=== PATIENT | male | born 1990 | race Caucasian/White ===

== ENCOUNTER 2018-07-06 05:44 | Observation (INO) | payer OTHER ==
[~2018-07-06] VITALS: Ht 180.3 cm; Wt 85.3 kg
[~2018-07-06 05:44] MED LIST: ALBU8.5H11 INH; AMO250L PO; AUG875 PO; DIA5 PO; DOCU240C84 PO; ERYT-83 PO; HYDEL PO; IBU800 PO; LOR5 PO; LOR5/325 PO; NO ROUTINE MEDS; ONDA4TAB PO; PRE20 PO; [UNRECOGNIZED DRUG - OTHER] PO
--- NOTE | 2018-07-06 05:59 | ER Report ---
History and Physical Time Seen By MD: 05:59 Hx. of Stated Complaint: extremepain after spinal fusion on tues, L4 & L5 ems gave 100mcg fentenyl, 4mg zofran pain is more controlled (ANGELITO WEEMS MD) HPI/ROS CHIEF COMPLAINT: back pain in area of surgery. HISTORY OF PRESENT ILLNESS: This is a 28 year old male. He is having increased back pain after surgery. He had a [id number] invasive transforaminal interbody fusion for L5 radiculopathy on the right and L5-S1 isthmic spondylolisthesis done on July 04, 2 days ago, by Dr. Trammell. He is taking Lortab and Valium for pain. He had been doing well, getting up and down and moving around yesterday, then yesterday afternoon feeling overall general weakness and worsening pain. He has been urinating normally, no difficulty. He has normal sensation in the legs. He has no fevers or chills. Has not had a bowel movement yet since having the surgery. He has started a stool softener once a day, first dose yesterday. Not noting any leakage from the surgical site, dressing still in place, but is dry. (ANGELITO WEEMS MD) Allergies: Coded Allergies: nickel (Verified Allergy, Mild, 07/06/18) Home Meds Reported Medications Ranitidine Hcl (ZANTAC) 150 Mg Tablet, 150 MG PO QDAY, TAB 07/06/18 Docusate Calcium (SURFAK) 240 Mg Capsule, 240 MG PO QDAY, #9 CAPSULE 07/04/18 Diazepam (VALIUM) 5 Mg Tablet, 5 MG PO Q8H PRN for PAIN, #16 TAB 07/04/18 Hydrocodone Bit/Acetaminophen (HYDROCODON-ACETAMINOPHEN 5-325) 1 Each Tablet, 1- 2 EACH PO Q6H, #36 TAB 07/04/18 Reviewed Nurses Notes: Yes (ANGELITO WEEMS MD) Hx Smoking: Yes Smoking Status: Former Smoker, Light Tobacco Smoker Exposure to Second Hand Smoke?: Yes Hx Substance Use Disorder: Yes (couple "bowls" a day) Hx Alcohol Use: Yes (ANGELITO WEEMS MD) Constitutional Vital Sign - Last 24 Hours 07/06/18 05:45 Temp 97.7 Pulse 93 Resp 16 B/P (MAP) 133/78 Pulse Ox 92 O2 Delivery Nasal Cannula Physical Exam General Appearance: Alert, having some distress due to pain. Eyes: Pupils equal and round no injection ENT: Normal oral mucosa. Moist mucous membranes. Neck: Neck is supple and non tender. Respiratory: Chest is non tender, lungs are clear to auscultation. Cardiac: regular rate and rhythm, normal pulses in the feet and wrists. good capillary refill. Gastrointestinal: Abdomen is soft and non tender, no masses, bowel sounds normal. Musculoskeletal: No pain in extremities. Pain worsens with movement. Neuro: normal strength in the extremities. No numbness. Skin: No rashes or lesions. DIFFERENTIAL DIAGNOSIS: After history and physical exam differential diagnosis was considered for back pain after surgery, was doing well, but now worsening pain. No injuries. Will need to look at possible increased pain control versus other problem with the recent fusion or infectious process. Will give pain medication and then evaluate the surgical site by removing the dressing and then considering imaging. (ANGELITO WEEMS MD) Constitutional Vital Sign - Last 24 Hours 07/06/18 07/06/18 07/06/18 07/06/18 05:45 05:52 06:14 06:44 Temp 97.7 Pulse 93 96 98 Resp 16 B/P (MAP) 133/78 133/78 (96) Pulse Ox 92 93 93 O2 Delivery Nasal Cannula 07/06/18 07/06/18 07/06/18 07/06/18 06:54 07:00 07:05 07:30 Pulse 105 B/P (MAP) 130/78 (95) 126/65 (85) 134/70 (91) Pulse Ox 95 07/06/18 07/06/18 07:35 08:00 Pulse 106 B/P (MAP) 120/63 (82) Pulse Ox 95 Physical Exam 07/06/2018 7:22:39 am after patient was given adequate pain occasion, he was assisted to rolling to the side. The back was examined. Incision is clean dry and intact no evidence of wound dehiscence no wound erythema and no fluctuance felt underneath the surgical site. (RAFY MARTINS MD) Medical Decision Making Data Points Result Diagram: 07/06/1827 07/06/18626 Laboratory Hematology Test 07/06/18 06:27 07/06/18 06:55 Red Blood Count 5.01 M/uL (4.00-5.60) Mean Corpuscular Volume 90.1 fL (80.0-96.0) Mean Corpuscular Hemoglobin 30.7 pg (26.0-33.0) Mean Corpuscular Hemoglobin Concent 34.0 g/dL (32.0-36.0) Red Cell Distribution Width 13.1 % (11.5-14.5) Mean Platelet Volume 8.0 fL (7.2-11.1) Neutrophils (%) (Auto) 77.4 % (39.4-72.5) Lymphocytes (%) (Auto) 12.8 % (17.6-49.6) Monocytes (%) (Auto) 8.7 % (4.1-12.4) Eosinophils (%) (Auto) 0.2 % (0.4-6.7) Basophils (%) (Auto) 0.9 % (0.3-1.4) Nucleated RBC Relative Count (auto) 0.1 /100WBC Neutrophils # (Auto) 11.3 K/uL (2.0-7.4) Lymphocytes # (Auto) 1.9 K/uL (1.3-3.6) Monocytes # (Auto) 1.3 K/uL (0.3-1.0) Eosinophils # (Auto) 0.0 K/uL (0.0-0.5) Basophils # (Auto) 0.1 K/uL (0.0-0.1) Nucleated RBC Absolute Count (auto) 0.01 K/uL Erythrocyte Sedimentation Rate 16 mm/HOUR (0-15) Sodium Level 138 mmol/L (137-145) Potassium Level 3.9 mmol/L (3.5-5.0) Chloride Level 103 mmol/L (98-107) Carbon Dioxide Level 26 mmol/L (22-30) Blood Urea Nitrogen 17 mg/dl (9-21) Creatinine 0.90 mg/dl (0.66-1.25) Glomerular Filtration Rate Calc > 60.0 Random Glucose 110 mg/dl (75-110) Calcium Level 8.6 mg/dl (8.4-10.2) Total Bilirubin 0.5 mg/dl (0.2-1.3) Aspartate Amino Transf (AST/SGOT) 53 U/L (0-35) Alanine Aminotransferase (ALT/SGPT) 54 U/L (0-56) Alkaline Phosphatase 60 U/L (0-126) C-Reactive Protein 4.4 mg/dl (<1.0) Total Protein 6.9 g/dl (6.3-8.2) Albumin 3.8 g/dl (3.5-5.0) Chemistry Test 07/06/18 06:27 07/06/18 06:55 White Blood Count 14.6 k/uL (4.5-11.0) Red Blood Count 5.01 M/uL (4.00-5.60) Hemoglobin 15.4 g/dL (14.0-18.0) Hematocrit 45.1 % (42.0-52.0) Mean Corpuscular Volume 90.1 fL (80.0-96.0) Mean Corpuscular Hemoglobin 30.7 pg (26.0-33.0) Mean Corpuscular Hemoglobin Concent 34.0 g/dL (32.0-36.0) Red Cell Distribution Width 13.1 % (11.5-14.5) Platelet Count 208 K/uL (150-450) Mean Platelet Volume 8.0 fL (7.2-11.1) Neutrophils (%) (Auto) 77.4 % (39.4-72.5) Lymphocytes (%) (Auto) 12.8 % (17.6-49.6) Monocytes (%) (Auto) 8.7 % (4.1-12.4) Eosinophils (%) (Auto) 0.2 % (0.4-6.7) Basophils (%) (Auto) 0.9 % (0.3-1.4) Nucleated RBC Relative Count (auto) 0.1 /100WBC Neutrophils # (Auto) 11.3 K/uL (2.0-7.4) Lymphocytes # (Auto) 1.9 K/uL (1.3-3.6) Monocytes # (Auto) 1.3 K/uL (0.3-1.0) Eosinophils # (Auto) 0.0 K/uL (0.0-0.5) Basophils # (Auto) 0.1 K/uL (0.0-0.1) Nucleated RBC Absolute Count (auto) 0.01 K/uL Erythrocyte Sedimentation Rate 16 mm/HOUR (0-15) Glomerular Filtration Rate Calc > 60.0 Calcium Level 8.6 mg/dl (8.4-10.2) Total Bilirubin 0.5 mg/dl (0.2-1.3) Aspartate Amino Transf (AST/SGOT) 53 U/L (0-35) Alanine Aminotransferase (ALT/SGPT) 54 U/L (0-56) Alkaline Phosphatase 60 U/L (0-126) C-Reactive Protein 4.4 mg/dl (<1.0) Total Protein 6.9 g/dl (6.3-8.2) Albumin 3.8 g/dl (3.5-5.0) Urinalysis Test 07/06/18 06:55 ([facility]) Laboratory Hematology Test 07/06/18 06:27 07/06/18 06:55 Red Blood Count 5.01 M/uL (4.00-5.60) Mean Corpuscular Volume 90.1 fL (80.0-96.0) Mean Corpuscular Hemoglobin 30.7 pg (26.0-33.0) Mean Corpuscular Hemoglobin Concent 34.0 g/dL (32.0-36.0) Red Cell Distribution Width 13.1 % (11.5-14.5) Mean Platelet Volume 8.0 fL (7.2-11.1) Neutrophils (%) (Auto) 77.4 % (39.4-72.5) Lymphocytes (%) (Auto) 12.8 % (17.6-49.6) Monocytes (%) (Auto) 8.7 % (4.1-12.4) Eosinophils (%) (Auto) 0.2 % (0.4-6.7) Basophils (%) (Auto) 0.9 % (0.3-1.4) Nucleated RBC Relative Count (auto) 0.1 /100WBC Neutrophils # (Auto) 11.3 K/uL (2.0-7.4) Lymphocytes # (Auto) 1.9 K/uL (1.3-3.6) Monocytes # (Auto) 1.3 K/uL (0.3-1.0) Eosinophils # (Auto) 0.0 K/uL (0.0-0.5) Basophils # (Auto) 0.1 K/uL (0.0-0.1) Nucleated RBC Absolute Count (auto) 0.01 K/uL Erythrocyte Sedimentation Rate 16 mm/HOUR (0-15) Sodium Level 138 mmol/L (137-145) Potassium Level 3.9 mmol/L (3.5-5.0) Chloride Level 103 mmol/L (98-107) Carbon Dioxide Level 26 mmol/L (22-30) Blood Urea Nitrogen 17 mg/dl (9-21) Creatinine 0.90 mg/dl (0.66-1.25) Glomerular Filtration Rate Calc > 60.0 Random Glucose 110 mg/dl (75-110) Calcium Level 8.6 mg/dl (8.4-10.2) Total Bilirubin 0.5 mg/dl (0.2-1.3) Aspartate Amino Transf (AST/SGOT) 53 U/L (0-35) Alanine Aminotransferase (ALT/SGPT) 54 U/L (0-56) Alkaline Phosphatase 60 U/L (0-126) C-Reactive Protein 4.4 mg/dl (<1.0) Total Protein 6.9 g/dl (6.3-8.2) Albumin 3.8 g/dl (3.5-5.0) Urine Color Yellow Urine Clarity Clear Urine pH 5.0 pH (4.8-9.5) Urine Specific [place] 1.024 Urine Protein Negative mg/dL (NEGATIVE) Urine Glucose (UA) Negative mg/dL (NEGATIVE) Urine Ketones Negative mg/dL (NEGATIVE) Urine Blood Negative (NEGATIVE) Urine Nitrite Negative (NEGATIVE) Urine Bilirubin Negative (NEGATIVE) Urine Urobilinogen Negative mg/dL (0.2-1.9) Urine Leukocyte Esterase Negative (NEGATIVE) Urine RBC None /HPF (0-2/HPF) Urine WBC <1 /HPF (0-5/HPF) Urine Squamous Epithelial Cells None /LPF (</=FEW) Urine Bacteria Negative /HPF (NONE-FEW) Urine Mucus Few /HPF (NONE-FEW) Chemistry Test 07/06/18 06:27 07/06/18 06:55 White Blood Count 14.6 k/uL (4.5-11.0) Red Blood Count 5.01 M/uL (4.00-5.60) Hemoglobin 15.4 g/dL (14.0-18.0) Hematocrit 45.1 % (42.0-52.0) Mean Corpuscular Volume 90.1 fL (80.0-96.0) Mean Corpuscular Hemoglobin 30.7 pg (26.0-33.0) Mean Corpuscular Hemoglobin Concent 34.0 g/dL (32.0-36.0) Red Cell Distribution Width 13.1 % (11.5-14.5) Platelet Count 208 K/uL (150-450) Mean Platelet Volume 8.0 fL (7.2-11.1) Neutrophils (%) (Auto) 77.4 % (39.4-72.5) Lymphocytes (%) (Auto) 12.8 % (17.6-49.6) Monocytes (%) (Auto) 8.7 % (4.1-12.4) Eosinophils (%) (Auto) 0.2 % (0.4-6.7) Basophils (%) (Auto) 0.9 % (0.3-1.4) Nucleated RBC Relative Count (auto) 0.1 /100WBC Neutrophils # (Auto) 11.3 K/uL (2.0-7.4) Lymphocytes # (Auto) 1.9 K/uL (1.3-3.6) Monocytes # (Auto) 1.3 K/uL (0.3-1.0) Eosinophils # (Auto) 0.0 K/uL (0.0-0.5) Basophils # (Auto) 0.1 K/uL (0.0-0.1) Nucleated RBC Absolute Count (auto) 0.01 K/uL Erythrocyte Sedimentation Rate 16 mm/HOUR (0-15) Glomerular Filtration Rate Calc > 60.0 Calcium Level 8.6 mg/dl (8.4-10.2) Total Bilirubin 0.5 mg/dl (0.2-1.3) Aspartate Amino Transf (AST/SGOT) 53 U/L (0-35) Alanine Aminotransferase (ALT/SGPT) 54 U/L (0-56) Alkaline Phosphatase 60 U/L (0-126) C-Reactive Protein 4.4 mg/dl (<1.0) Total Protein 6.9 g/dl (6.3-8.2) Albumin 3.8 g/dl (3.5-5.0) Urine Color Yellow Urine Clarity Clear Urine pH 5.0 pH (4.8-9.5) Urine Specific [place] 1.024 Urine Protein Negative mg/dL (NEGATIVE) Urine Glucose (UA) Negative mg/dL (NEGATIVE) Urine Ketones Negative mg/dL (NEGATIVE) Urine Blood Negative (NEGATIVE) Urine Nitrite Negative (NEGATIVE) Urine Bilirubin Negative (NEGATIVE) Urine Urobilinogen Negative mg/dL (0.2-1.9) Urine Leukocyte Esterase Negative (NEGATIVE) Urine RBC None /HPF (0-2/HPF) Urine WBC <1 /HPF (0-5/HPF) Urine Squamous Epithelial Cells None /LPF (</=FEW) Urine Bacteria Negative /HPF (NONE-FEW) Urine Mucus Few /HPF (NONE-FEW) Urinalysis Test 07/06/18 06:55 Urine Color Yellow Urine Clarity Clear Urine pH 5.0 pH (4.8-9.5) Urine Specific [place] 1.024 Urine Protein Negative mg/dL (NEGATIVE) Urine Glucose (UA) Negative mg/dL (NEGATIVE) Urine Ketones Negative mg/dL (NEGATIVE) Urine Blood Negative (NEGATIVE) Urine Nitrite Negative (NEGATIVE) Urine Bilirubin Negative (NEGATIVE) Urine Urobilinogen Negative mg/dL (0.2-1.9) Urine Leukocyte Esterase Negative (NEGATIVE) Urine RBC None /HPF (0-2/HPF) Urine WBC <1 /HPF (0-5/HPF) Urine Squamous Epithelial Cells None /LPF (</=FEW) Urine Bacteria Negative /HPF (NONE-FEW) Urine Mucus Few /HPF (NONE-FEW) (RAFY MARTINS MD) ED Course/Re-evaluation Turned Over The care of the patient was turned over to Dr. Martins. Angelito Weems M.D. I authorize my typed signature that I authenticated this report. (ANGELITO WEEMS MD) ED Course 07/06/2018 7:23:[address] Kingston Trammell who is the patient's operating surgeon. History physical exam blood work including white cell count, sedimen tation rate and CRP were discussed. Dr. Trammell does not feel that any additional imaging would be useful at this time. Recommends continued hydration, continue with his current outpatient prescriptions and to avoid all NSAIDs for the next few months. Patient understands. Will follow-up with Dr. Trammell. Was counseled to return at any time if he develops fever. Re-evaluation 07/06/2018 8:52:28 am patient despite multiple doses of pain medication was unable to ambulate I discussed case with who stated that we will admit the pain for pain control. Place the patient on a pain [employer]AT [employer] pump with Zofran for nausea. Patient and had no questions or concerns at time of disposition Decision to Disposition Date: Jul 06, 2018 Decision to Disposition Time: 08:31 (RAFY MARTINS MD) Depart Departure Latest Vital Signs Vital Signs Date Time Temp Pulse Resp B/P (MAP) Pulse Ox O2 Delivery O2 Flow Rate FiO2 07/06/18 05:45 97.7 93 16 133/78 92 Nasal Cannula (ANGELITO WEEMS MD) Latest Vital Signs Vital Signs Date Time Temp Pulse Resp B/P (MAP) Pulse Ox O2 Delivery O2 Flow Rate FiO2 07/06/18 08:00 120/63 (82) 07/06/18 07:35 106 95 07/06/18 05:45 97.7 16 Nasal Cannula (RAFY MARTINS MD) Impression: Primary Impression: Post-operative pain Condition: Condition Unchanged Disposition: Admitted from ER (to Dr Wilson) Patient Instructions: Back Pain (ED) Additional Instructions: Continue all your outpatient medications as prescribed. Follow-up with Dr. Trammell by phone next week. If your symptoms worsen or if you develop fever at any time you should return to the emergency department for reevaluation. ANGELITO WEEMS MD Jul 06, 2018 05:59 RAFY MARTINS MD Jul 06, 2018 07:25
[2018-07-06] MEDS ORDERED: HYDROMORPHONE HCL 1 MG/ML SYRINGE IVP ONE ×2 (06:25→08:10)
[2018-07-06] MEDS ORDERED: NS(*) 0.9% 1000 ML BAG 1,000 ML IV ONE ×2 (06:40→07:25)
[2018-07-06 06:46] LABS: PLATELET COUNT, AUTOMATED 208 K/uL (150-450)
[2018-07-06 09:33] VITALS: BP 133/74
[2018-07-06] MEDS ORDERED: NS(*) 0.9% 500 ML BAG 500 ML IV PRN ×2 (09:50→12:45)
[2018-07-06] MEDS ORDERED: PCA LOCKBOX KEYS XX ONE ×2 (09:57→21:09)
[2018-07-06] MEDS ORDERED: HYDROmorphone PCA 6 MG/30 ML ONE (09:57)
[2018-07-06] MEDS ORDERED: PCA LOCKBOX KEYS XX PRN (10:05)
[2018-07-06] MEDS ORDERED: NALOXONE HCL 0.4 MG/ML VIAL IVP PRN (10:05)
[2018-07-06 10:16] VITALS: Ht 180.3 cm; Wt 85.3 kg
[2018-07-06] MEDS: HYDROmorphone PCA 6 MG/30 ML IV PRN ×2 (10:34→21:09)
[2018-07-06] MEDS ORDERED: RANI-366 PO (10:49)
[2018-07-06] MEDS ORDERED: ONDANSETRON 4 MG/2 ML VIAL IVP PRN (12:45)
[2018-07-06 14:27] VITALS: BP 148/78
--- NOTE | 2018-07-06 15:06 | RADIOLOGY IMAGING REPORT ---
FACILITY: [facility] - [place] PATIENT NAME: Neo Fowler : 1990 MR: [id number] V: [id number] EXAM DATE: ORDERING PHYSICIAN: AUSTEN MORRIS TECHNOLOGIST: Location: [facility] Patient: Neo Fowler : 1990 Visit/Account:[id number] Date of Sevice: 07/06/2018 LUMBAR SPINE 2 OR 3 VIEW HISTORY: post op pain and swelling Status post pedicle fusions. FINDINGS: Study demonstrates pedicle screws at the L5-S1 level. Hardware well-maintained. Disc prosthesis wel l-positioned at the L5-S1 disc space. Vertebral bodies well-maintained and aligned. Disc spaces int act. No DJD. SI joints unremarkable. IMPRESSION: 1. Status post pedicle fusion changes at the L5-S1 level. Report Dictated By: Joe Quintanilla MD at 07/06/2018 2:58 PM Report E-Signed By: Joe Quintanilla MD at 07/06/2018 3:01 PM WSN:[email or web address]
[2018-07-06] MEDS ORDERED: PROMETHAZINE 25 MG/ML 1 ML AMP IVP PRN (15:20)
[2018-07-06] MEDS: CYCLOBENZAPRINE HCL 10 MG TAB PO PRN ×2 (16:03→22:11)
[2018-07-06] MEDS ORDERED: LORazepam 2 MG/ML VIAL IVP ONE (17:00)
[2018-07-06] MEDS ORDERED: GADOBENATE 529MG/1ML 15ML VIAL IVP ONE (17:33)
--- NOTE | 2018-07-06 19:04 | RADIOLOGY IMAGING REPORT ---
FACILITY: [facility] - [place] PATIENT NAME: Neo Fowler : 1990 MR: [id number] V: [id number] EXAM DATE: ORDERING PHYSICIAN: AUSTEN MORRIS TECHNOLOGIST: Location: [facility] Patient: Neo Fowler : 1990 Visit/Account:[id number] Date of Sevice: 07/06/2018 EXAMINATION: MRI Lumbar spine without and with intravenous contrast HISTORY: Postsurgical back pain and swelling. COMPARISON: Lumbar spine radiographs dated 07/06/2018. TECHNIQUE: Multi-planar, multi-sequence lumbar spine MRI was performed before and after IV contrast. CONTRAST: 15 mL of IV MultiHance FINDINGS: Alignment: 3 mm of anterior listhesis of L5 over S1. Vertebral marrow signal: Negative. Distal thoracic cord: Negative. Conus: negative, terminates at L1 Cauda equina: Negative. Paravertebral soft tissues: Small subcutaneous fluid collections along the surgical approach measurin g 3.6 x 2.4 cm on the right and 4.2 x 3.2 cm on the left. Extensor muscle edema and enhancement. Visualized abdominal and pelvic structures: Negative. Enhancement pattern: Otherwise negative. Disc Spaces: Lower thoracic spine: Negative. L1-2: Negative. L2-3: Negative. L3-4: Negative. L4-5: Negative. L5-S1: Bilateral L5 pars defects with 3 mm of anterior listhesis. Bilateral pedicle screws. Interbody cage. No significant spinal canal stenosis. Moderate bilateral neural foraminal stenosis. IMPRESSION: 1. Small subcutaneous fluid collections along the surgical approach measuring 3.6 x 2.4 cm on the rig ht and 4.2 x 3.2 cm on the left. There is also surrounding extensor muscle edema and enhancement. The se findings may represent sterile postsurgical changes or cellulitis and myositis with small abscesse s. 2. Bilateral pedicle screws and interbody cage at L5-S1 with 3 mm of anterior listhesis secondary to bilateral L5 pars defects. Report Dictated By: Ward Silva MD at 07/06/2018 6:53 PM Report E-Signed By: Ward Silva MD at 07/06/2018 7:01 PM WSN:[id number]
[2018-07-06 19:33] VITALS: BP 133/86
[2018-07-06 22:14] VITALS: BP 126/78
[2018-07-06] MEDS ORDERED: PANTOPRAZOLE SOD 40 MG TABEC PO SCH (22:30)
[2018-07-07 03:20] VITALS: BP 141/79
[2018-07-07] MEDS: CYCLOBENZAPRINE HCL 10 MG TAB PO PRN ×2 (05:17→11:52)
[2018-07-07 08:47] VITALS: BP 141/84
[2018-07-07] MEDS ORDERED: PANTOPRAZOLE SOD 40 MG TABEC PO SCH (09:00)
[2018-07-07] MEDS: HYDROmorphone PCA 6 MG/30 ML IV PRN (09:14)
[2018-07-07 13:01] VITALS: BP 134/83
[2018-07-07] MEDS ORDERED: MAGNESIUM HYDROXIDE* 30ML UDCP PO PRN (14:25)
[2018-07-07] MEDS ORDERED: BISACODYL 10 MG SUPP PR PRN (14:25)
[2018-07-07] MEDS ORDERED: POLYETHYLENE GLYCOL 17 GM PKT PO SCH (14:25)
[2018-07-07] MEDS ORDERED: APAP/HYDROCODONE 325/5 TAB PO PRN (14:25)
[2018-07-07] MEDS ORDERED: oxyCODONE HCL 5 MG CAP PO PRN (14:25)
[2018-07-07] MEDS ORDERED: DOCUSATE SODIUM 100 MG CAP PO SCH (21:00)
== END 2018-07-07 17:57 | disposition home or self-care (01) ==
LOC: ER 06:32 → MED 09:05 → INTOOBSV 09:05 → ER 09:09
PROVIDERS: ADMIT Orthopaedic Surgery; ATTEND Orthopaedic Surgery
DX: G89.18 Other acute postprocedural pain (principal)
CPT/HCPCS: 72100; 72158; 81001; 85025; 85651; 86140; 96361; 96374; 96375; 97116; 97161; 97530; 99284; A9577; G0378; J1170; J2060; J2405; J7030; J7040; 82040; 82247; 82310; 82374; 82435; 82565; 82947; 84075; 84132; 84155; 84295; 84450; 84460; 84520